=== PATIENT | male | born 1995 | race African-American/Black ===

== ENCOUNTER 2025-02-21 10:20 | Outpatient (CLI) | payer OTHER, SELFPAY ==
--- NOTE | ~2025-02-21 | XR_ITS ---
EXAMINATION: XR ankle LT min 3V, XR foot LT min 3V DATE: 02/21/2025 10:42 INDICATION: Left ankle injury with pain the joints of the left foot and ankle TECHNIQUE: 1. Anteroposterior, mortise, additional oblique and lateral view of the left ankle were obtained. 2. Dorsoplantar, two oblique and lateral views of the left foot were obtained. COMPARISON: None. FINDINGS: Alignment of the left foot and ankle is normal. No fracture. Small round corticated ossicle on the oblique view of the left ankle projecting between the distal fibula, the lateral margin of the talar dome and the inferolateral margin of the tibial plafond, likely sequela of old trauma. 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 No ankle joint effusion. Soft tissue swelling about the ankle most prominent over the lateral malleolus. IMPRESSION: 1. No left ankle joint effusion or acute osseous abnormality at the left foot or ankle. Reviewed, dictated and finalized at location A. [facility] [employer] IMPRESSION: 1. No left ankle joint effusion or acute osseous abnormality at the left foot o r ankle.
== END 2025-02-21 10:21 | disposition home or self-care (01) ==
PROVIDERS: PCP Nurse Practitioner Family; Visit Provider Nurse Practitioner Family
DX: M25.572 Pain in left ankle and joints of left foot (principal); S99.912D Unspecified injury of left ankle, subsequent encounter; X58.XXXD Exposure to other specified factors, subsequent encounter
CPT/HCPCS: 73610; 73630